=== PATIENT | male | born 1970 | race Caucasian/White ===

== ENCOUNTER 2018-02-10 06:59 | Emergency (ER) | END 2018-02-10 10:39 | disposition home or self-care (01) ==

== ENCOUNTER 2018-12-25 09:47 | Day surgery (SDC) | payer OTHER ==
[~2018-12-25] VITALS: Ht 165.1 cm; Wt 81.7 kg
[~2018-12-25 09:47] MED LIST: ALLO300T2 PO; AMOX500C2 PO; CLAR500T PO; LACT1TAB11 PO; PANT40TA4 PO
[2018-12-25 10:53] VITALS: Ht 165.1 cm; Wt 81.7 kg
[2018-12-25 10:55] VITALS: BP 133/91; PULSE 70; RESP 16
[2018-12-25] MEDS ORDERED: SOD CHLORIDE 0.9% 500 ML ONE (14:05)
[2018-12-25] MEDS ORDERED: CEFAZOLIN 1 GM/50 ML (PMX) 50 ML IVPB ONE (14:20)
[2018-12-25] MEDS ORDERED: FENTAnyl 50 MCG/ML VIAL ONE (14:20)
[2018-12-25] MEDS ORDERED: MIDAZOLAM 1 MG/ML 2 ML INJ ONE (14:20)
[2018-12-25] MEDS ORDERED: LIDOCAINE 1%/EPI 30 ML INJ INJ SCH (14:30)
[2018-12-25 15:42] VITALS: BP 122/66; PULSE 80; RESP 18
== END 2018-12-25 16:21 | disposition home or self-care (01) ==
LOC: SDS 09:47
PROVIDERS: ATTEND Internal Medicine Hematology & Oncology
DX: Z45.2 Encounter for adjustment and management of vascular access device (principal); C83.30 Diffuse large B-cell lymphoma, unspecified site
CPT/HCPCS: 36590; 87070; J0690; J2250; J3010; J7040; Z7610